=== PATIENT | female | born 1955 ===

== ENCOUNTER 2021-03-22 12:08 | Outpatient (CLI) | payer OTHER | END 2021-03-22 12:16 | disposition home or self-care (01) | LOC: SONOGRAMA 12:08 | PROVIDERS: ATTEND Specialist | DX: R10.84 Generalized abdominal pain (principal); N28.89 Other specified disorders of kidney and ureter ==

== ENCOUNTER 2021-05-05 08:34 | Outpatient (CLI) | payer OTHER | END 2021-05-05 08:36 | disposition home or self-care (01) | LOC: TOM 08:34 | PROVIDERS: ATTEND Specialist | DX: K45.8 Other specified abdominal hernia without obstruction or gangrene (principal) ==